=== PATIENT | male | born 1940 | race Caucasian/White ===

== ENCOUNTER 2021-01-26 08:20 | Emergency (ER) | payer MEDICARE, SELFPAY ==
[2021-01-26] MEDS ORDERED: Sodium Chloride 0.9% 1,000 ML ONE (08:29)
[2021-01-26] MEDS ORDERED: Ondansetron PF 4 MG/2 ML Vial ONE (08:33)
[2021-01-26] MEDS ORDERED: Pantoprazole 40 MG VIAL ONE (08:33)
[2021-01-26] MEDS ORDERED: Sodium Chloride 0.9% 100 ML ONE (08:39)
[2021-01-26] MEDS ORDERED: Octreotide Acetate 100 MCG/ML VIAL ONE ×2 (08:53→08:58)
[2021-01-26 09:00] LABS: ALT (SGPT) 26 U/L (8-55); AST (SGOT) 41 U/L (5-34); Albumin 1.9 g/dL (3.4-4.8); Alkaline Phosphatase 151 U/L (40-110); Anion Gap 21 mmol/L (10-20); BUN (Urea Nitrogen) 45 mg/dL (8.4-25.7); Bilirubin, Total 1.9 mg/dL (0.2-1.2); Calc. Creatinine Clearance 0 mL/min (70-130); Calcium 7.8 mg/dL (7.8-10.44); Carbon Dioxide 16 mmol/L (23-31); Chloride 96 mmol/L (98-107); Globulin 3.1 g/dL (2.4-3.5); Glucose 142 mg/dL (83-110); Lipase 22 U/L (8-78); Potassium 4.2 mmol/L (3.5-5.1); Sodium 129 mmol/L (136-145)
[2021-01-26] MEDS ORDERED: EPINEPHrine 1 MG/10 ML Abboject SYRINGE ONE (09:00)
[2021-01-26 09:08] LABS: INR-International Normal Ratio 1.6; PTT 38.3 sec (22.9-36.1); Prothrombin Time 19.4 sec (12.0-14.7)
[2021-01-26 09:13] LABS: #Basophils 0.1 thou/uL (0.0-0.2); #Lymphocytes 0.9 thou/uL (1.20-3.40); #Monocytes 1.4 thou/uL (0.11-0.59); #Neutrophils 7.7 thou/uL (1.40-6.50); %Basophils 0.9 % (0.0-1.0); %Eosinophils 0.2 % (0.0-10.0); %Lymphocytes 8.9 % (21.0-51.0); %Monocytes 14.2 % (0.0-10.0); %Neutrophils 75.8 % (42.0-75.0); Hemoglobin 7.5 g/dL (14.0-18.0); Mean Corpuscular HGB CONC 31.3 g/dL (32.0-36.0); Mean Corpuscular Hemoglobin 32.9 pg (27.0-31.0); Mean Platelet Volume 7.7 fL (7.4-10.4); Platelet Count 213 thou/uL (130-400); RBC Distribution Width 14.9 % (11.5-14.5); Red Blood Cell (RBC) Count 2.28 mill/uL (4.70-6.10); White Blood Cell (WBC) Count 10.1 thou/uL (4.8-10.8)
[2021-01-26 09:14] LABS: Hypochromia SLIGHT = 6-15 cells (100X) (0-5/hpf); MDiff Complete? YES; Macrocytosis SLIGHT = 6-15 cells (100X) (0-5/hpf); Platelet Morphology Comment Appears Adequate
[2021-01-26 09:17] LABS: CKMB 2.5 ng/mL (0-6.6)
[2021-01-27 01:01] LABS: SARS-CoV-2 PCR by NAA Not Detected (NotDetected)
== END 2021-01-26 14:34 | disposition expired ==
LOC: NAV ERS 08:20
DX: I46.9 Cardiac arrest, cause unspecified (principal); I95.9 Hypotension, unspecified; E86.1 Hypovolemia; D64.9 Anemia, unspecified; E87.2 Acidosis; N19 Unspecified kidney failure; K92.2 Gastrointestinal hemorrhage, unspecified; R11.2 Nausea with vomiting, unspecified; Z20.822 Contact with and (suspected) exposure to COVID-19; Z99.2 Dependence on renal dialysis; Z79.899 Other long term (current) drug therapy
CPT/HCPCS: 31500; 36430; 71045; 80053; 82553; 83605; 83690; 84484; 85025; 85610; 85730; 86850; 86900; 86901; 92950; 93005; 96372; 96374; 96375; C9113; J0171; J2354; J2405; J7050; P9016; U0003; U0005